=== PATIENT | male | born 1970 | race Caucasian/White ===

== ENCOUNTER 2018-10-27 16:27 | Emergency (ER) | payer MEDICAID ==
[~2018-10-27] VITALS: Ht 167.6 cm; Wt 102.1 kg
[2018-10-27 16:31] VITALS: BP 155/95
--- NOTE | 2018-10-27 17:49 | NUR ---
PT AMBULATED TO BED 09.
[2018-10-27] MEDS ORDERED: SPIR50TA PO (18:06)
[2018-10-27] MEDS ORDERED: AMLO10TA PO (18:06)
[2018-10-27] MEDS ORDERED: HYDR-3320 PO (18:06)
--- NOTE | 2018-10-27 18:10 | NUR ---
PATIENT PRESENTS TO ED WITH c/o pitting edema to ble---rle pitting edema up to below knee vs lle mid tib/fib area pitting pain to sole feet r denies recent injury or long travel DENIES N/V/D; SKIN IS PINK/WARM/DRY; AAOX4 WITH EVEN AND STEADY GAIT; LUNGS CLEAR BL; HR EVEN AND REGULAR; PT DENIES ANY FEVER, CP, SOB, OR COUGH AT THIS TIME; PATIENT STATES PAIN OF 8/10 AT THIS TIME; VSS; PATIENT POSITIONED FOR COMFORT; HOB ELEVATED; BEDRAILS UP X2; BED DOWN. ER MD MADE AWARE OF PT STATUS.
--- NOTE | 2018-10-27 18:27 | NUR ---
career guidance technician at bedside.
[2018-10-27 18:31] LABS: BASOPHILS # (AUTO) 0.1 K/uL (0.00-0.22); EOSINOPHILS # (AUTO) 0.1 K/uL (0-0.4); EOSINOPHILS % (AUTO) 2.2 % (0.0-4.0); HEMATOCRIT 42.6 % (36-52); HEMOGLOBIN 14.8 g/dL (12.0-18.0); LYMPHOCYTES # (AUTO) 1.2 K/uL (2.0-11.5); LYMPHOCYTES % (AUTO) 22.5 % (20.5-51.1); MEAN CORPUSCULAR HEMOGLOBIN 30 pg (27-31); MEAN CORPUSCULAR HGB CONC 35 g/dL (33-37); MEAN CORPUSCULAR VOLUME 86.3 fL (80-94); MONOCYTES # (AUTO) 0.6 K/uL (0.8-1.0); MONOCYTES % (AUTO) 11.3 % (1.7-9.3); NEUTROPHILS # (AUTO) 3.4 K/uL (1.8-7.7); PLATELET COUNT (AUTO) 179 K/uL (140-450); RED BLOOD CELL COUNT(AUTO) 4.94 MIL/uL (4.20-6.10); RED CELL DISTRIBUTION WIDTH 13.1 % (11.6-13.7); WHITE BLOOD COUNT (AUTO) 5.4 K/uL (4.8-10.8)
[2018-10-27 18:54] LABS: ALBUMIN 3.9 g/dL (3.4-5.0); CARBON DIOXIDE 28.7 mmol/L (21-32); CREATININE 1.1 mg/dL (0.7-1.3); TOTAL BILIRUBIN 0.5 mg/dL (0.0-1.0)
[2018-10-27 19:00] LABS: ANION GAP 13.9 (8-16); POTASSIUM 3.6 mmol/L (3.5-5.1)
--- NOTE | 2018-10-27 19:02 | NUR ---
Dr. Mcgee evaluating patient at bedside.
--- NOTE | 2018-10-27 19:19 | NUR ---
Pt report given to NATHAN Benjamin. Transfer of care at this time.
--- NOTE | 2018-10-27 19:20 | NUR ---
ASSUMED CARE OF PT FROM NATHAN KOENIG
--- NOTE | 2018-10-27 19:55 | NUR ---
US AT BEDSIDE.
[2018-10-27 20:16] LABS: APPEARANCE,URINE CLEAR (CLEAR); BILIRUBIN,URINE NEGATIVE (NEGATIVE); BLOOD, URINE NEGATIVE (NEGATIVE); COLOR,URINE YELLOW (YELLOW); LEUKOCYTE ESTERASE ,URINE NEGATIVE (NEGATIVE); NITRITE, URINE NEGATIVE (NEGATIVE); UGLUCOSE NEGATIVE (NEGATIVE)
[2018-10-27 20:50] VITALS: BP 150/80
--- NOTE | 2018-10-27 20:50 | NUR ---
DISCHARGE INSTRUCTIONS GIVEN TO PT. 0/10 PAIN. NO SOB/DYSPNEA. A&OX4. GIVEN RX FOR NAPROSYN. SIDE EFFECTS EXPLAINED. INSTRUCTED TO F/U WITH PCP. PT VEBALIZED UNDERSTANDING OF DC INSTRUCTIONS. ALL QUESTIONS ANSWERED.
== END 2018-10-27 20:50 | disposition home or self-care (01) ==
LOC: MED 16:27
DX: R60.0 Localized edema (principal); I10 Essential (primary) hypertension; F17.200 Nicotine dependence, unspecified, uncomplicated; Z79.899 Other long term (current) drug therapy
CPT/HCPCS: 36415; 71045; 80053; 81003; 83880; 85025; 93970; 99284; Q0092